=== PATIENT | female | born 1945 | race Caucasian/White ===

== ENCOUNTER 2021-03-24 16:02 | Emergency (ER) | payer MEDICARE ==
[2021-03-24 17:29] LABS: HEMOGLOBIN 14.3 gm/dl (12.3-15.3); RED BLOOD COUNT 4.6 M/UL (4.00-5.10); WHITE BLOOD COUNT 6.3 K/UL (4.5-11.0)
[2021-03-24 17:49] LABS: BUN/CREATININE RATIO 21 (0-10)
[2021-03-24] MEDS ORDERED: ZOFRAN ODT 4 MG4 MG GT (20:22)
== END 2021-03-24 20:55 | disposition home or self-care (01) ==
LOC: ER1 16:02
PROVIDERS: Physician Assistant
DX: U07.1 COVID-19 (principal); K52.9 Noninfective gastroenteritis and colitis, unspecified; E78.5 Hyperlipidemia, unspecified; I10 Essential (primary) hypertension; J44.9 Chronic obstructive pulmonary disease, unspecified; Z90.49 Acquired absence of other specified parts of digestive tract
CPT/HCPCS: 80053; 81001; 85025; 96374; 99284; J2405; J7030; U0002